=== PATIENT | male | born 2000 | race Caucasian/White ===

== ENCOUNTER 2022-03-25 15:35 | Observation (INO) ==
[2022-03-25] MEDS ORDERED: Charcoal ACTIVATED 25 GM/120 ML BTL PO ONE (16:53)
[2022-03-25] MEDS ORDERED: Charcoal ACTIVATED 25 GM/120 ML BTL ONE (16:55)
[2022-03-25 16:59] LABS: ABS Eosinophils 0.1 10^3/ul (0-0.6); ABS Lymphocytes 1.4 10^3/ul (1.0-4.8); ABS Monocytes 0.5 10^3/ul (0-0.8); ABS Neutrophils 4.4 10^3/ul (1.5-7.7); Eosinophil % 0.8 %; Hematocrit 41 % (42-52); Lymphocyte % 22.1 %; Mean Corpuscular HGB Conc 34 g/dL (31-36); Mean Corpuscular Hemoglobin 29 pg (27-31); Mean Corpuscular Volume 85 fL (80-94); Mean Platelet Volume 7.6 fL (7.4-10.4); Platelet Count 224 10^3/uL (150-450); Red Blood Count 4.77 10^6 /uL (4.18-5.48); Red Cell Distribution Width 13 % (10-15); White Blood Count 6.3 10^3/uL (3.5-10.8)
[2022-03-25 17:02] LABS: Urine Appearance Clear; Urine Bilirubin Negative (Negative); Urine Blood Negative (Negative); Urine Color Yellow; Urine Glucose Negative (Negative); Urine Ketones Negative (Negative); Urine pH 8.5 (5.0-9.0)
[2022-03-25 17:03] LABS: Urine Nitrite Negative (Negative); Urine Protein Negative (Negative); Urine Urobilinogen 1.0 (Negative) (Negative)
[2022-03-25] MEDS ORDERED: Ondansetron 4 mg VIAL 2 MG/ML 2 ml VIAL IV ONE (17:04)
[2022-03-25 17:16] LABS: Urine Benzodiazepine Screen None Detected (None Detect); Urine Cannabinoids Screen None Detected (None Detect); Urine Opiates Screen None Detected (None Detect)
[2022-03-25 17:25] LABS: ALT 9 U/L (7-52); AST 13 U/L (13-39); Acetaminophen < 15 mcg/mL; Albumin 4.5 g/dL (3.2-5.2); Albumin/Globulin Ratio 1.7 (1-3); Alcohol, S < 13 mg/dL (<13); Alkaline Phosphatase 76 U/L (35-149); Anion Gap 9 mmol/L (2-11); Blood Urea Nitrogen 15 mg/dL (6-24); CO2 Carbon Dioxide 25 mmol/L (22-32); Calcium 9.5 mg/dL (8.6-10.3); Chloride 106 mmol/L (101-111); Globulin 2.6 g/dL (2-4); Glucose 90 mg/dL (70-100); Salicylate < 2.50 mg/dL (<30); Sodium 140 mmol/L (135-145); Total Protein 7.1 g/dL (6.4-8.9); eGFR CKD-EPI 108.6 (>60)
[2022-03-25 17:36] LABS: TSH Ultra Thyroid Stim Horm 1.03 mcIU/mL (0.34-5.60)
[2022-03-26 08:38] LABS: ABS Eosinophils 0.1 10^3/ul (0-0.6); ABS Lymphocytes 1.8 10^3/ul (1.0-4.8); ABS Monocytes 0.4 10^3/ul (0-0.8); ABS Neutrophils 2.8 10^3/ul (1.5-7.7); Eosinophil % 2.7 %; Hematocrit 41 % (42-52); Hemoglobin 13.7 g/dL (14.0-18.0); Mean Corpuscular HGB Conc 34 g/dL (31-36); Mean Corpuscular Hemoglobin 29 pg (27-31); Mean Corpuscular Volume 86 fL (80-94); Mean Platelet Volume 7.6 fL (7.4-10.4); Nucleated Red Blood Cells % 0.2; Platelet Count 197 10^3/uL (150-450); Red Blood Count 4.78 10^6 /uL (4.18-5.48); Red Cell Distribution Width 13 % (10-15); White Blood Count 5.2 10^3/uL (3.5-10.8)
[2022-03-26 09:35] LABS: Albumin 4.1 g/dL (3.2-5.2); Albumin/Globulin Ratio 1.9 (1-3); Globulin 2.2 g/dL (2-4); Lithium 0.14 mmol/L (0.6-1.2); Potassium 4.2 mmol/L (3.5-5.0); Total Bilirubin 0.6 mg/dL (0.2-1.0); Total Protein 6.3 g/dL (6.4-8.9); eGFR CKD-EPI 99.2 (>60)
[2022-03-26 15:45] VITALS: BP 129/62
== END 2022-03-26 15:02 ==
LOC: ED 15:35 → EDHOLD 15:35 → SUATTDRO 17:42 → MEDTELE 22:55
PROVIDERS: ADMIT Student in an Organized Health Care Education/Training Program; ATTEND Internal Medicine

== ENCOUNTER 2022-03-26 15:42 | Inpatient (IN) ==
[2022-03-26] MEDS ORDERED: Al Hydrox/Mg Hydrox/Simet LIQ 30 ML UDC PO PRN (15:48)
[2022-03-27 08:46] LABS: HDL Cholesterol 45.7 mg/dL
[2022-03-29 07:49] VITALS: BP 132/66
== END 2022-03-29 11:30 | disposition home or self-care (01) | DRG 885 ==
LOC: BSU 16:14
PROVIDERS: ADMIT Psychiatry & Neurology Psychiatry; ATTEND Psychiatry & Neurology Psychiatry